=== PATIENT | male | born 1975 | race Caucasian/White ===

== ENCOUNTER → 2018-05-07 09:45 | Outpatient (CLI) | payer OTHER, SELFPAY ==
[2018-05-07 12:34] LABS: Absolute Lymphocyte Count 1.37 X10^3/ul (0.83-4.51); Absolute Neutrophil Count 3.5 X10^3/uL (2.0-7.7); Basophil# 0.01 X10^3/uL; Basophil% 0.2 % (0-1); Eosinophil# 0.32 X10^3/uL; Eosinophils% 5.7 % (0-5); Hematocrit 45.7 % (40-54); Hemoglobin 14.8 g/dl (13.0-16.5); Lymphocyte # 1.37 X10^3/ul (4.0); Lymphocyte % 24.2 % (19-41); Mean Corp Hgb Conc 32.4 g/gl (32-36); Mean Corpuscular Hgb 28.1 pg (27.0-32.0); Mean Corpuscular Volume 86.7 fL (80-94); Mean Platelet Vol. 11.2 fl (6.2-12.0); Monocyte# 0.41 X10^3/uL; Monocyte% 7.2 % (0-10); Neutrophil # 3.54 X10^3/uL (2.7-7.7); Neutrophil % 62.5 % (47-70); POSITIVE COUNT NO; POSITIVE DIFFERENTIAL NO; POSITIVE MORPHOLOGY NO; Platelet Count 318 K/mm3 (150-450); RBC Distribution Width CV 13.2 % (11.6-14.6); RBC Distribution Width SD 41.7 fl (35.1-43.9); Red Blood Count 5.27 M/mm3 (4.6-6.2); White Blood Count 5.7 K/mm3 (4.4-11.0)
[2018-05-07 12:48] LABS: AST(SGOT) 14 U/L (15-37); Alanine Aminotransfer ALT/SGPT 30 U/L (16-61); Albumin, Serum 4.3 g/dL (3.2-5.0); Alkaline Phosphatase 53 U/L (45-117); Anion Gap 9 (5-15); BUN 15 mg/dL (7-18); BUN/Creat Ratio 14.9 RATIO (10-20); Bilirubin, Direct 0.09 mg/dL (0.00-0.30); Calcium,Total 9.1 mg/dL (8.5-10.1); Chloride 106 mmol/L (98-107); Creatinine, Serum 1.01 mg/dL (0.70-1.30); EST Glomerular Filtration Rate 85 mL/min (>60); Est Glom Filt Rate - Afr Amer 103 mL/min (>60); Globulin 4.2 g/dL (2.2-4.2); Glucose 83 mg/dL (74-106); Potassium 3.7 mmol/L (3.5-5.1); Protein, Total 8.5 g/dL (6.4-8.2); Sodium Level 140 mmol/L (136-145)
[2018-05-10 03:07] LABS: QNTFERON TB Mitogen Value > 10.00 IU/mL (.); QNTFERON TB Nil Value 0.03 IU/mL (.); QNTFERON TB1+ Ag Value 0.03 IU/mL (.); QNTFERON TB2+ Ag Value 0.03 IU/mL (.)
[2018-05-10 09:33] LABS: QNTIFERON TB Positive Criteria Negative (Negative)
== END ==
PROVIDERS: Referring Provider Dermatology Pediatric Dermatology; Visit Provider Dermatology Pediatric Dermatology
DX: L40.0 Psoriasis vulgaris (principal)
CPT/HCPCS: 36415; 80048; 80076; 85025; 86480

== ENCOUNTER 2021-03-01 00:02 | Observation (INO) | payer BC, SELFPAY ==
[2021-03-01] VITALS (16 sets, daily range): BP systolic 134–172; BP diastolic 79–123; PULSE 71–102; RESP 16–18; TEMP 35.5–37.1; O2SAT 93–99; BMI 33.3; BMI 34.0
--- NOTE | 2021-03-01 00:40 | ED.VIS.GI ---
HPI HPI - GI History of Present Illness Chief Complaint: Abd Pain Informant: patient Narrative Narrative: Patient is a 45-year-old male presenting with worsening pain in his right lower quadrant. Patient states it started around 10 PM he describes as sharp in nature. He notes he has some diffuse discomfort in his abdomen but it is worse in the right lower quadrant now. It does not radiate. States he felt fine over the weekend. He notes for the past few weeks ever since he had Covid he has had nausea vomiting and diarrhea however this is finally resolved. Has had a prior vasectomy but no abdominal surgeries. States he is told his blood pressure is high sometimes but he does not take any medication for it. Denies any urinary symptoms. Denies any fever or chills. Did not take any for pain prior to arrival. PFSH PFSH Medical History no medical history Home Medications fexofenadine [Kathleen] 60 mg PO DAILY 03/01/21 [History Last Taken Unknown] Allergy/AdvReac Type Severity Reaction Status Date / Time No Known Allergies Allergy Verified 03/01/21 00:05 Social History Smoking Status: Never smoker ROS ROS ED Constitutional Constitutional ED: Denies chills or fever(s) ENT ENT ED: Denies sore throat Cardiovascular Cardiovascular: Denies chest pain Respiratory/Chest Respiratory/Chest: Denies cough or dyspnea Gastrointestinal Gastrointestinal: Reports abdominal pain; Denies diarrhea, nausea or vomiting Genitourinary Genitourinary ED: Denies dysuria, hematuria or urinary frequency Musculoskeletal Musculoskeletal: Denies arthralgias, back pain or myalgias Integumentary Denies rash Neurologic Neurologic: Denies headache(s) or weakness Psychiatric Psychiatric: Denies anxiety or depression EXAM Physical Exam Const Vital Signs: 03/01/21 00:03 03/01/21 00:05 Temperature 96.8 F L 96.8 F L Temperature Source Temporal Temporal Pulse Rate 98 98 Respiratory Rate 16 16 Blood Pressure 172/123 H 172/123 H Blood Pressure Mean 139 139 Pulse Ox 99 99 Oxygen Delivery Method Room Air Room Air Positive well nourished and well developed General Appearance ED: well developed HEENT normocephalic Eyes PERRL Neck supple Resp normal respiratory effort and clear to auscultation bilaterally Cardio regular rate, regular rhythm and no murmurs GI non-distended Auscultation: normoactive bowel sounds Palpation: soft and tender RLQ and McBurney's point; Negative for guarding, rigid or rebound tenderness present Back/Spine no CVA tenderness Extremity full ROM General Extremety ED: Negative for edema or tenderness General Extremity: Negative for edema Neuro no sensory deficits noted Sensorium / Orientation: alert Motor Exam: strength 5/5 throughout; Negative for general weakness Psych mental status grossly normal and thought process normal Skin Lesions: no lesions Rashes: no rashes MDM MDM MDM Narrative Medical decision making narrative: Patient is evaluated for right lower quadrant abdominal pain. He has pain at McBurney's point. He is otherwise well-appearing. No peritoneal signs. He has a leukocytosis of 14.5. Vital signs are significant for mild hypertension. He states he has been told his blood pressure is high in the past is not on any medications. No other significant laboratory abnormalities. CT of abdomen pelvis shows acute appendicitis. No signs of perforation or abscess. Patient is admitted to surgical service, Dr. Swann, for definitive management. Patient is given Toradol in the ER for pain control. He started on IV Zosyn. Lab Data Attestation: I reviewed the patient's lab results. Labs: Laboratory Results - last 24 hr 03/01/21 03/01/21 03/01/21 00:20 00:20 00:25 WBC 14.5 H RBC 4.61 Hgb 13.1 Hct 39.9 L MCV 86.6 MCH 28.4 MCHC 32.8 RDW Std Deviation 39.8 RDW Coeff of Louise 12.7 Plt Count 313 MPV 10.9 Immature Gran % (Auto) 0.400 Neut % (Auto) 71.2 H Lymph % (Auto) 17.3 L [place] % (Auto) 8.5 Eos % (Auto) 2.3 Baso % (Auto) 0.3 Absolute Neuts (auto) 10.3 H Absolute Lymphs (auto) 2.52 Nucleated RBC % 0 Sodium 140 Potassium 4.4 Chloride 106 Carbon Dioxide 29.0 Anion Gap 5 BUN 10 Creatinine 0.94 Estim Creat Clear Calc 84.51 Est GFR (MDRD) Af Amer 110 Est GFR (MDRD) Non-Af 91 BUN/Creatinine Ratio 10.6 Glucose 114 H Calcium 9.0 Total Bilirubin 0.30 AST 43 H ALT 54 Alkaline Phosphatase 62 Total Protein 7.2 Albumin 3.3 Globulin 3.9 Albumin/Globulin Ratio 0.8 L Lipase 170 Urine Color Yellow Urine Clarity Clear Urine pH 6.0 Ur Specific [place] 1.020 Urine Protein Negative Urine Glucose (UA) Normal Urine Ketones Negative Urine Occult Blood 25 H Urine Nitrite Negative Urine Bilirubin Negative Urine Urobilinogen Normal Ur Leukocyte Esterase Negative Urine RBC 0-5 SEEN Urine WBC 0 SEEN Ur Squamous Epith Cells 0 SEEN Urine Bacteria 0 SEEN Urine Mucus 0 SEEN Radiography Diagnostic Testing: Clinical Impression(s) from Imaging Studies Abdomen/Pelvis CT 03/01/21 00:41 IMPRESSION: Acute appendicitis. Electronically Signed: Mikhail Bennett MD at 1:19 EST Tel , Service support , Discharge Plan Triage Chief Complaint: Abd Pain ED Provider: Jing Britt Dx/Rx/DC Orders Clinical Impression: Acute appendicitis Prescriptions: No Action Kathleen 30 mg Tablet 60 mg PO DAILY RF: 0 Primary Care Provider: Johnny Zhao NP Referrals: Johnny Zhao NP, GASOLINE TRUCK CRANE OPERATOR-C [Primary Care Provider] - Disposition Disposition: Acute Care [facility]
--- NOTE | 2021-03-01 00:41 | CT_ITS ---
STUDY: CT ABDOMEN AND PELVIS WITH CONTRAST REASON FOR EXAM: Male, 45 years old. RLQ abd pain RADIATION DOSAGE (If Supplied By Facility): CTDIvol = ( 17.92 ) mGy, DLP = ( 1236.79 ) mGycm TECHNIQUE: Transaxial images were obtained from the dome of the diaphragm to the symphysis pubis without oral contrast. IV 100mL Isovue-300 was administered. Sagittal and coronal images were reconstructed. Individualized dose optimization techniques were used for this CT. COMPARISON: None. FINDINGS: The visualized lung bases are unremarkable. The visualized portions of the heart are within normal limits. Multiple liver cysts are noted the largest measuring 3.1 cm. Normal gallbladder and extrahepatic biliary system. Normal spleen. Normal pancreas. Normal bilateral adrenal glands. Multiple bilateral renal cysts, the largest measures 4.5 cm. Normal visualized stomach. Normal small intestine. Normal colon. There is a tubular, thick-walled appendix (>7mm), consistent with acute appendicitis. Normal abdominal aorta. Normal inferior vena cava. Normal retroperitoneum. Normal urinary bladder. Normal abdominal wall. Normal osseous structures. CT/Abdomen/Pelvis W IV Cont ONLY IMPRESSION: Acute appendicitis. Electronically Signed: Mikhail Bennett MD at 1:19 EST Tel , Service support ,
[2021-03-01 00:45] LABS: Absolute Lymphocyte Count 2.52 X10^3/uL (0.83-4.51); Absolute Neutrophil Count 10.3 X10^3/uL (2.0-7.7); Basophil# 0.04 X10^3/uL; Basophil% 0.3 % (0-1); Eosinophil# 0.33 X10^3/uL; Eosinophils% 2.3 % (0-5); Hematocrit 39.9 % (40-54); Hemoglobin 13.1 g/dL (13.0-16.5); Lymphocyte # 2.52 X10^3/ul (0.83-4.51); Lymphocyte % 17.3 % (19-41); Mean Corp Hgb Conc 32.8 g/dL (32-36); Mean Corpuscular Hgb 28.4 pg (27.0-32.0); Mean Corpuscular Volume 86.6 fL (80-94); Mean Platelet Vol. 10.9 fl (6.2-12.0); Monocyte# 1.24 X10^3/uL; Monocyte% 8.5 % (0-10); NRBC Flagged by Analyzer 0 % (0-5); Neutrophil # 10.34 X10^3/uL (2.7-7.7); Neutrophil % 71.2 % (47-70); Platelet Count 313 K/mm3 (150-450); RBC Distribution Width CV 12.7 % (11.6-14.6); RBC Distribution Width SD 39.8 fl (35.1-43.9); Red Blood Count 4.61 M/mm3 (4.6-6.2); White Blood Count 14.5 K/mm3 (4.4-11.0)
[2021-03-01 00:49] LABS: Bacteria 0 SEEN /hpf (None Seen); Mucous, Urine 0 SEEN /hpf (<or=2+); Squamous Epithelial Cells - UA 0 SEEN /hpf (0-5); White Blood Cells 0 SEEN /hpf (0-5)
[2021-03-01] MEDS: 0.9% Normal Saline 1,000 ML 1000 ML IV (00:49)
[2021-03-01 00:50] LABS: Color, Urine Yellow (Yellow); Glucose, Dipstick Normal (Normal); Ketone-Dipstick Negative (Negative); Leukocyte Esterase-Dipstick Negative /ul (Negative); Nitrite-Dipstick Negative (Negative); Occult Blood-Urine 25 /ul (Negative); Protein-Dipstick Negative (Negative); Urine Bilirubin Dipstick Negative (Negative); Urine Clarity Clear (Clear); Urine Urobilinogen Normal (Normal)
[2021-03-01 00:56] LABS: Red Blood Cells-Urine 0-5 SEEN /hpf (0-5)
[2021-03-01 01:01] LABS: ALB/GLOB Ratio 0.8 RATIO (0.9-2.4); AST(SGOT) 43 U/L (15-37); Alanine Aminotransfer ALT/SGPT 54 U/L (16-61); Albumin, Serum 3.3 g/dL (3.2-5.0); Alkaline Phosphatase 62 U/L (45-117); Anion Gap 5 (5-15); BUN 10 mg/dL (7-18); BUN/Creat Ratio 10.6 RATIO (10-20); Chloride 106 mmol/L (98-107); Creatinine, Serum 0.94 mg/dL (0.70-1.30); EST Glomerular Filtration Rate 91 mL/min (>60); Est Glom Filt Rate - Afr Amer 110 mL/min (>60); Estimated Creatinine Clearance 84.51 ml/min; Globulin 3.9 g/dL (2.2-4.2); Glucose 114 mg/dL (74-106); Lipase 170 U/L (73-393); Potassium 4.4 mmol/L (3.5-5.1); Protein, Total 7.2 g/dL (6.4-8.2); Sodium Level 140 mmol/L (136-145)
[2021-03-01] MEDS: Ketorolac 30 MG/ML Syringe 15 MG IV (01:01)
[2021-03-01] MEDS: 0.9% Normal Saline 1,000 ML 120 ML IV ×2 (03:10→12:52)
[2021-03-01] MEDS: Morphine 4 MG/ML Syringe IV (05:18)
--- NOTE | 2021-03-01 07:23 | PCM.HP.STD ---
HPI - General General Date of Admission: 03/01/21 HPI Narrative LOUIS MANCINI, is a 45 M who presents with abdominal pain beginning last night. The abdominal pain was initially generalized and then localized to the RLQ. Worsening pain developed. Described as sharp. Has some nausea but denies emesis. Denies fevers. He presented to [facility] ED - afebrile, elevated WBC of 14.5K with left shift of differential and CT scan findings of appendicitis. [facility] Medical History Hypertension Seasonal allergies Medical History no medical history Home Medications fexofenadine [Kathleen] 60 mg PO DAILY 03/01/21 [History Last Taken Unknown] Allergy/AdvReac Type Severity Reaction Status Date / Time No Known Allergies Allergy Verified 03/01/21 00:05 Surgical History History of vasectomy Social History Smoking Status: Never smoker ROS Constitutional Constitutional: Denies fever(s) or weight loss Cardiovascular Cardiovascular: Denies chest pain Respiratory/Chest Respiratory/Chest: Denies productive cough Gastrointestinal Gastrointestinal: Denies hematochezia Genitourinary Genitourinary: Denies dysuria or hematuria Musculoskeletal Musculoskeletal: Reports back pain and joint pain Integumentary Integumentary: Denies jaundice Neurologic Neurologic: Denies abnormal gait or dizziness Hematologic/Lymphatic Hematologic/Lymphatic: Denies easy bleeding Vital Signs Vital Signs Vital Signs: 03/01/21 00:03 03/01/21 00:05 03/01/21 02:12 Temperature 96.8 F L 96.8 F L 98.3 F Temperature Source Temporal Temporal Oral Pulse Rate 98 98 92 Respiratory Rate 16 16 17 Blood Pressure 172/123 H 172/123 H 141/93 H Blood Pressure Mean 139 139 109 Blood Pressure Source Blood Pressure Position Blood Pressure Location Pulse Ox 99 99 97 Oxygen Delivery Method Room Air Room Air Room Air 03/01/21 02:40 Temperature 98.8 F Temperature Source Oral Pulse Rate 86 Respiratory Rate 18 Blood Pressure 166/91 H Blood Pressure Mean 116 Blood Pressure Source Monitor Blood Pressure Position Semi-Fowlers Blood Pressure Location Left Arm Pulse Ox 99 Oxygen Delivery Method Room Air Weight Weight: 92.8 kg Body Mass Index (BMI) 34.0 Physical Exam Const oriented x3 and no apparent distress Resp normal respiratory effort Cardio regular rate GI GI Narrative: abdomen is obese and soft with guarding in right lower quadrant and percussion tenderness Extremity no clubbing, cyanosis or edema Results Lab / Micro Data Result Diagrams: 03/01/21 00:20 03/01/21 00:20 Labs: Laboratory Results - last 24 hr 03/01/21 00:20: WBC 14.5 H, RBC 4.61, Hgb 13.1, Hct 39.9 L, MCV 86.6, MCH 28.4, MCHC 32.8, RDW Std Deviation 39.8, RDW Coeff of Louise 12.7, Plt Count 313, MPV 10.9, Immature Gran % (Auto) 0.400, Neut % (Auto) 71.2 H, Lymph % (Auto) 17.3 L, [place] % (Auto) 8.5, Eos % (Auto) 2.3, Baso % (Auto) 0.3, Absolute Neuts (auto) 10.3 H, Absolute Lymphs (auto) 2.52, Nucleated RBC % 0 03/01/21 00:20: Sodium 140, Potassium 4.4, Chloride 106, Carbon Dioxide 29.0, Anion Gap 5, BUN 10, Creatinine 0.94, Estim Creat Clear Calc 84.51, Est GFR (MDRD) Af Amer 110, Est GFR (MDRD) Non-Af 91, BUN/Creatinine Ratio 10.6, Glucose 114 H, Calcium 9.0, Total Bilirubin 0.30, AST 43 H, ALT 54, Alkaline Phosphatase 62, Total Protein 7.2, Albumin 3.3, Globulin 3.9, Albumin/Globulin Ratio 0.8 L, Lipase 170 03/01/21 00:25: Urine Color Yellow, Urine Clarity Clear, Urine pH 6.0, Ur Specific [place] 1.020, Urine Protein Negative, Urine Glucose (UA) Normal, Urine Ketones Negative, Urine Occult Blood 25 H, Urine Nitrite Negative, Urine Bilirubin Negative, Urine Urobilinogen Normal, Ur Leukocyte Esterase Negative, Urine RBC 0-5 SEEN, Urine WBC 0 SEEN, Ur Squamous Epith Cells 0 SEEN, Urine Bacteria 0 SEEN, Urine Mucus 0 SEEN Micro: Microbiology 03/01/21 02:10 Interface Orders SARS-CoV-2 Antigen (Rapid) - Final Radiology Impression Abdomen/Pelvis CT 03/01/21 00:41 IMPRESSION: Acute appendicitis. Electronically Signed: Mikhail Bennett MD at 1:19 EST Tel , Service support , ADDENDUM: 03/01/21 0621 Assessment & Plan Assessment/Plan (1) Acute appendicitis: QUALIFIERS: Acute appendicitis type: unspecified acute appendicitis type Qualified Code(s): K35.80 - Unspecified acute appendicitis PLAN: I have discussed the above with the patient. I have offered the patient the procedure of laparoscopic appendectomy. I have explained the procedure to the patient. I have counseled the patient as to the risks of the procedure, including but not limited to: infection, bleeding, injury to any blood vessels/nerves, scar tissue, injury to any intraabdominal organs, injury to kidney/ureters, injury to bowel/bladder, intraabdominal abscess/bleeding, hernias at incisional sites, wound infections, possible open procedure, complications of anesthesia, postoperative pneumonia/cardiac problems/blood clots etc. the patient understands. He wishes to proceed. I have answered all questions to the patient?s satisfaction and the patient has no further questions.
--- NOTE | 2021-03-01 07:57 | EKG12_ITS ---
Test Reason : PRE OP Blood Pressure : / mmHG Vent. Rate : 083 BPM Atrial Rate : 083 BPM P-R Int : 138 ms QRS Dur : 080 ms QT Int : 390 ms P-R-T Axes : 041 024 013 degrees QTc Int : 458 ms Normal sinus rhythm Normal ECG Confirmed by RICH LEZAMA, IVANIA ([id number]), material expeditor ROBYN ISRAEL ([id number]) on 03/02/2021 9:29:15 AM Referred By: DELMY Confirmed By:IVANIA VILLANUEVA MD
--- NOTE | 2021-03-01 11:15 | APP_PTH ---
PATIENT: LOUIS MANCINI LOC: [facility] U#:[id number] AGE/SX: 45/M ROOM: [facility] RE03/01/[address]: Dr. Latisha Swann MD : 1975 BED: 1 DIS: 03/01/2021 SPEC #: [id number] RECD: 03/01/21 13:49 STATUS: ELSIE REEdil #: [id number] GAYLE: 03/01/21 11:[address]: Latisha Swann DEPT: SURGICAL PATHOLOGY RECD BY: Ana Salas ENTERED: 03/02/21 08:58 SP TYPE: APPENDIX OTHR DR: Johnny Zhao, SIERRA-Kevin Tissues: Appendix, NOS Procedures: Surgery Specimen Level III HEADER OPERATION: Laparoscopic appendectomy PRE-OP DIAGNOSIS: Acute appendicitis TISSUE SUBMITTED: Appendix MICROSCOPIC DIAGNOSIS Appendix, appendectomy: Acute appendicitis and periappendicitis. JENSEN:sofia 03/03/2021 MICROSCOPIC DESCRIPTION Slides are reviewed. GROSS DESCRIPTION Received in fixative is one container labeled with the patient's name and designated appendix. The specimen consists of an appendix in two pieces measuring 6 cm in length and up to 0.5 cm in diameter. An area of disruption may represent the site of rupture. The lumen contains hemorrhagic material. No fecalith is identified. Assisted Living Coordinator sections are submitted in two cassettes. / SJ:rg 03/02/21 TC:2 CPT: 54494
[2021-03-01] MEDS: Bupivacaine 0.25% 30 ML Vial (12:13)
--- NOTE | 2021-03-01 12:25 | PCM.OPRPT ---
Report of Operation Date of Procedure: 03/01/21 Pre-Operative Diagnosis: acute appendicitis Post-Operative Diagnosis: same Surgery/Procedure Performed:: laparoscopic appendectomy Description of Surgical Findings:: retrocecal appendix extending superiorly along the para colic gutter Surgeon: Latisha Swann Type of Anesthesia: General Anesthesiologist: Garth Yousif Specimen's removed: appendix Drains: none Estimated Blood Loss (mL): < 20 ml Fluids Replaced: 700 ml RL Description of Procedure: After informed consent was obtained, the patient was brought into the Operating Room. Appropriate time out protocol was followed. The patient was placed in the supine position on the operating table. The patient was then placed under general anesthesia by the anesthesia provider. The patient?s abdomen was then prepped with a sterile surgical skin preparation and sterile surgical drapes were placed. The infraumbilical skin fold was grasped with penetrating towel clamps and the skin and subcutaneous tissues were infiltrated with local anesthetic with epinephrine. An incision was then made with a 15 blade scalpel. A Veress needle was then inserted into the intraabdominal cavity and checked to be in the proper position with a normal saline drop test. A CO2 pneumoperitoneum was then created. Once this was achieved, the Veress needle was removed and a 5 mm trocar was placed in its stead. A 5 mm laparoscope was then inserted into the trocar. Careful examination of the intraabdominal contents was then done. There was no evidence of injury to any internal organs from placement of the Veress needle or the trocar. Under direct visualization, a 12mm suprapubic trocar and a 5mm left lower quadrant trocar was then placed into the intraabdominal cavity. The skin and subcutaneous tissues at these sites were first infiltrated with local anesthetic with epinephrine. Attention was then directed to the right lower quadrant. The appendix was visualized. It was retrocecal and extending up the right paracolic gutter, cephalad. The appendix appeared enlarged/edematous/injected with surrounding fatty tissue inflammation. The mesentery of the appendix was taken down by cauterizing the tissue from the free edge to the base of the appendix using the Harmonic scalpel. Once the base of the appendix was freed of surrounding tissues, then the linear gastrointestinal stapling device was brought into the abdominal cavity via the 12mm port and placed across the base of the appendix. The stapling device was fired, thus stapling across the base of the appendix and transecting it simultaneously. There was no evidence of perforation of the appendix. The pelvic cavity was vigorously irrigated with normal saline and all irrigant was aspirated out. The appendix was placed in an Endobag and this was brought out through the suprapubic trocar. The appendix was forwarded to Pathology for analysis. The appendiceal stump was carefully examined. There was no evidence of any active bleeding or fecal leakage. The surrounding tissues were also examined and there was no evidence of any active bleeding or fecal/bile leakage. The intraabdominal cavity was examined and there was no evidence of any further inflammation or tissue abnormality. The CO2 pneumoperitoneum was released and all trocars were removed intact. The suprapubic fascia was reapproximated with a figure-of-8 vicryl suture. All skin incisions were reapproximated with monocryl suture. Cavilon and steristrips were applied to reinforce skin closure and proper sterile dressings were placed. Sponge, needle, and instrument count were verified and correct at the time of skin closure. The patient was then extubated and brought to the Recovery Room in stable condition. Complications none noted Admit VTE Documentation VTE Present on Admission: Yes VTE Mechan Device Prophylaxis: SCD's
--- NOTE | 2021-03-01 16:25 | DCINST_ITS ---
Discharge Instructions Follow Up Care Test Results: Test results from this visit will be discussed in further detail at your follow-up appointment, if applicable. Discharge Plan Admission Admit Date/Time: 03/01/21 01:40 Attending Provider: Latisha Swann Primary Care Provider: Johnny Zhao NP Instructions Additional Instructions / Restrictions: Recommended pain control regimen - May take 600 mg ibuprofen (Motrin) and then in 3-4 hours, may take 650 mg acetaminophen (Tylenol), then in 3-4 hours may take 600 mg ibuprofen, then in 3- 4 hours may take 650 mg acetaminophen and so on for 2-3 days May take narcotic pain medication for pain that is not controlled by above and at night for comfort through the night Leave dressings in place May shower, do not scrub in the areas of the dressings as they may unravel. If they become overly soiled you may remove them but leave incision site open to air. Do not soak - no tub baths/swimming No lifting/pushing/pulling greater than 20 pounds for two weeks. Regular diet as tolerated, drink plenty of fluids. Avoid carbonated beverages for a few days as this will cause abdominal bloating and thus discomfort after our surgery. Please call my office for an appointment to see me in 1-2 weeks. Office number is If any questions, please call my office at and ask the keel press operator for the general surgery nurses desk Discharge Orders/Prescriptions Prescriptions: New hydrocodone-acetaminophen 5-325 mg tablet 1 tab PO Q8H 5 Days Qty: 15 RF: 0 No Action Kathleen 30 mg Tablet 60 mg PO DAILY RF: 0 Referrals / Follow Up: Johnny Zhao PAPER PRODUCTION ENGINEER, PAPER PRODUCTION ENGINEER-C [Primary Care Provider] - Disposition Discharge Orders: Discharge Patient (Routine); Ordered 03/01/21 Ordered By: Dr. Latisha Swann
== END 2021-03-01 18:18 | disposition home or self-care (01) ==
LOC: ED 01:38 → PCU 01:52
PROVIDERS: Admitting Provider Surgery; Emergency Provider Emergency Medicine; PCP Nurse Practitioner Family; Visit Provider Surgery
PROC: 0DTJ4ZZ Resection of Appendix, Percutaneous Endoscopic Approach (ICD-10-PCS; CPT 44970; principal; 2021-03-01 10:55)
DX: K35.80 Unspecified acute appendicitis (principal); I10 Essential (primary) hypertension
CPT/HCPCS: 00840; 44970; 74177; 80053; 81001; 83690; 85025; 87426; 88304; 93005; 96365; 96366; 96375; 99218; 99285; J7030; J7050; J7120; Q9967; A4216; G0378; J2405

== ENCOUNTER 2021-04-03 17:07 | Emergency (ER) | payer BC, SELFPAY ==
[2021-04-03 17:08] VITALS: BP 161/113; PULSE 101; RESP 18; TEMP 36.3; O2SAT 97; BMI 34.8
--- NOTE | 2021-04-03 18:27 | EDS_ITS ---
HPI History of Present Illness Chief Complaint: Lower Extremity Injury Detail of Chief Complaint: Right leg pain that started 4 days ago Informant: patient Narrative Narrative: Patient presents to the emergency department complaint of pain in his right leg that started initially 4 days ago. Patient states initially pain was more in his right knee but then the following day seem to migrate to the proximal posterior thigh. The pain is been there now continuously and is worse with pressure on that area or walking. He denies any chest pain or shortness of breath. He denies any trauma. Patient does do a lot of lifting and twisting at work. Patient also had an appendectomy last month. No history of PE or DVT. He has had no fever or recent illness. [facility] Medical History Hypertension Seasonal allergies Medical History no medical history Home Medications hydrocodone-acetaminophen 1 tab PO Q4H PRN PRN 2 Days #10 tablet 04/03/21 [Rx Last Taken Unknown] naproxen 500 mg PO BID #14 tab 04/03/21 [Rx Last Taken Unknown] Allergy/AdvReac Type Severity Reaction Status Date / Time No Known Allergies Allergy Verified 04/03/21 17:07 Surgical History History of vasectomy Social History Smoking Status: Never smoker ROS ROS ED Constitutional Constitutional ED: Reports systems reviewed and no addt'l complaints, except as documented; Denies body ache(s), change in weight or chills Eyes Eyes: Denies acute decrease in peripheral vision, change in vision, double vision or loss of vision ENT ENT ED: Reports none; Denies ear pain, lip swelling, loss taste/smell, neck pain, otalgia or sore throat Cardiovascular Cardiovascular: Reports none; Denies abdominal pain, chest pain with activity, leg edema, lightheadedness, palpitations, rapid heart rate or syncope Respiratory/Chest Respiratory/Chest: Reports none; Denies change in mental status, dry cough, dyspnea, hemoptysis, shortness of breath at rest or shortness of breath with exertion Gastrointestinal Gastrointestinal: Reports none; Denies abdominal pain, change in stool character, diarrhea, hematemesis, hematochezia, melena, rectal bleeding or vomiting Genitourinary Genitourinary ED: Reports none; Denies abdominal discomfort, anuria, dysuria, genital pain or polyuria Musculoskeletal Musculoskeletal: Reports none and other Details: Right leg pain ; Denies arthralgias, back pain, difficulty walking, extremity pain, muscle weakness or myalgias Integumentary Reports none; Denies abscess or rash Neurologic Neurologic: Reports none; Denies abnormal gait, confusion, focal weakness, frequent falls, headache(s), loss of vision, numbness, paresthesias, radicular pain, vertigo or weakness Psychiatric Psychiatric: Reports systems reviewed and no addt'l complaints, except as documented and none; Denies behavioral changes, confusion, difficulty concentrating, hallucinations, suicidal ideation, tactile hallucinations or visual hallucinations Endocrine Endocrinology: Denies none, cold intolerance, excessive sweating, fatigue or heat intolerance Hematologic/Lymphatic Hematologic/Lymphatic: Reports none; Denies anemia, easy bleeding or easy bruising Allergic/Immunologic Allergic/Immunologic ED: Denies as per HPI, none, lip swelling, mouth swelling, throat swelling, tongue swelling or hives EXAM Physical Exam Const Vital Signs: 04/03/21 17:08 Temperature 97.3 F L Temperature Source Temporal Pulse Rate 101 H Respiratory Rate 18 Blood Pressure 161/113 H Blood Pressure Mean 129 Pulse Ox 97 Oxygen Delivery Method Room Air Positive well nourished and well developed General Appearance ED: well developed and NAD HEENT Reports TM's clear and moist mucous membranes normocephalic and atraumatic; Negative for trauma or tenderness Tympanic Membrane ED: Yes TM's clear Eyes PERRL and EOMs intact bilaterally General Eye ED: Negative for pale conjunctiva or scleral icterus Neck no lymphadenopathy, supple and no JVD General: Negative for tenderness Chest Wall inspection of chest normal and palpation of chest normal Chest: Negative for tenderness Resp normal respiratory effort and clear to auscultation bilaterally Effort and Inspection: Negative for respiratory distress or pain with movement Auscultation: Negative for rhonchi, wheezes or diminished lung sounds Cardio regular rate, regular rhythm, S1 normal heart sound, S2 normal heart sound and no murmurs Peripheral Pulses: pulses 2+ throughout GI normal to inspection, nondistended, normoactive bowel sounds, soft to palpation, non-tender, non-distended and no masses Back/Spine no CVA tenderness and no thoracic nor lumbar tenderness Extremity Extremity Narrative: Evaluation of the right leg does reveal tenderness palpation over the right lateral proximal thigh as well as posterior thigh. There is no ecchymosis or bruising and no masses palpated. Good range of motion at the hip. There is no erythema or warmth noted. No cellulitic changes. Evaluation of the knee reveals no tenderness on palpation of the knee and there is no effusion. Ligamentously stable. Patient has no calf pain or swelling noted. General Extremety ED: Negative for edema General Extremity: Negative for edema Neuro oriented x3, CN's II-XII intact bilaterally, no sensory deficits noted and gait normal Sensorium / Orientation: awake, alert, oriented to person, oriented to place and oriented to time Motor Exam: strength 5/5 throughout and strength abnormal Psych mental status grossly normal Skin no rashes or lesions noted and no wounds MDM MDM MDM Narrative Medical decision making narrative: IV line established on arrival. Patient was given 4 mg of morphine and 4 mg of Zofran IV. He did have some pain relief with that. Lab work-up was unremarkable and his D-dimer was normal. At this point etiology of his pain is unclear although I suspect likely soft tissue. I do not suspect he has a DVT. Patient advised to follow-up with his primary care physician within next 3 to 5 days. He is given work restrictions. He is given a prescription for naproxen and [address] for pain. Lab Data Attestation: I reviewed the patient's lab results. Labs: Laboratory Results - last 24 hr 04/03/21 04/03/21 04/03/21 18:33 18:33 18:33 WBC 9.9 RBC 4.76 Hgb 13.5 Hct 41.4 MCV 87.0 MCH 28.4 MCHC 32.6 RDW Std Deviation 41.2 RDW Coeff of Louise 13.1 Plt Count 354 MPV 10.5 Immature Gran % (Auto) 0.100 Neut % (Auto) 67.7 Lymph % (Auto) 21.2 [place] % (Auto) 7.6 Eos % (Auto) 3.1 Baso % (Auto) 0.3 Absolute Neuts (auto) 6.7 Absolute Lymphs (auto) 2.10 Nucleated RBC % 0 D-Dimer Quant (PE/DVT) <= 0.27 Total Creatine Kinase 79 Radiography Diagnostic Testing: Clinical Impression(s) from Imaging Studies Femur X-Ray 04/03/21 18:50 IMPRESSION: Normal x-ray examination of the femur. Electronically Signed: Mateo Gama MD at 19:54 EST Tel , Service support , Discharge Plan Triage Chief Complaint: Lower Extremity Injury ED Provider: Jared Keenan Dx/Rx/DC Orders Clinical Impression: Acute pain of right lower extremity Instructions: ED Muscle Strain, Extremity Prescriptions: New hydrocodone-acetaminophen [hydrocodone-acetaminophen] 1 TABLET tablet 1 tab PO Q4H PRN PRN (Reason: Pain) 2 Days Qty: 10 RF: 0 naproxen 500 MG tablet 500 mg PO BID Qty: 14 RF: 0 Primary Care Provider: Johnny Zhao NP Referrals: Johnny Zhao NP, APPLICATIONS SUPPORT ENGINEER-C [Primary Care Provider] - 3-5 Days
[2021-04-03 18:43] LABS: Absolute Neutrophil Count 6.7 X10^3/uL (2.0-7.7); Basophil# 0.03 X10^3/uL; Basophil% 0.3 % (0-1); Eosinophil# 0.31 X10^3/uL; Eosinophils% 3.1 % (0-5); Hematocrit 41.4 % (40-54); Hemoglobin 13.5 g/dL (13.0-16.5); Lymphocyte % 21.2 % (19-41); Mean Corp Hgb Conc 32.6 g/dL (32-36); Mean Corpuscular Hgb 28.4 pg (27.0-32.0); Mean Platelet Vol. 10.5 fl (6.2-12.0); Monocyte# 0.75 X10^3/uL; Monocyte% 7.6 % (0-10); NRBC Flagged by Analyzer 0 % (0-5); Neutrophil # 6.72 X10^3/uL (2.7-7.7); Neutrophil % 67.7 % (47-70); Platelet Count 354 K/mm3 (150-450); RBC Distribution Width CV 13.1 % (11.6-14.6); RBC Distribution Width SD 41.2 fl (35.1-43.9); Red Blood Count 4.76 M/mm3 (4.6-6.2); White Blood Count 9.9 K/mm3 (4.4-11.0)
[2021-04-03] MEDS: Ondansetron 4 MG/2 ML Vial IV (18:47)
[2021-04-03] MEDS: Morphine 4 MG/ML Syringe IV (18:47)
--- NOTE | 2021-04-03 18:50 | RAD_ITS ---
STUDY: X-RAY - RIGHT FEMUR REASON FOR STUDY: Male, 45 years old. pain TECHNIQUE: 2 view(s) of the femur. COMPARISON: None. FINDINGS: Normal visualized femur. Normal visualized soft tissue structure. RAD/Femur Min 2 Views IMPRESSION: Normal x-ray examination of the femur. Electronically Signed: Mateo Gama MD at 19:54 EST Tel , Service support ,
[2021-04-03 19:00] LABS: CPK Total, Creatine Kinase 79 U/L (39-308)
[2021-04-03 19:06] LABS: D-Dimer Quantitative (DVT/PE) <= 0.27 FEU/ug/m (0.27-0.49)
== END 2021-04-03 20:12 | disposition home or self-care (01) ==
PROVIDERS: Emergency Provider Emergency Medicine; PCP Nurse Practitioner Family
DX: M79.604 Pain in right leg (principal); I10 Essential (primary) hypertension; Z79.899 Other long term (current) drug therapy
CPT/HCPCS: 73552; 82550; 85025; 85379; 96374; 96375; 99283; A4216; J2405

== ENCOUNTER 2023-08-25 23:06 | Emergency (ER) | payer BC, SELFPAY ==
[2023-08-25 23:07] VITALS: BP 108/52; PULSE 65; RESP 15; TEMP 36.1; O2SAT 98
--- NOTE | 2023-08-25 23:12 | EDS_ITS ---
HPI History of Present Illness Chief Complaint: Laceration [facility] Medical History Hypertension Seasonal allergies Medical History no medical history Home Medications hydrocodone-acetaminophen 5-325mg 5mg-325mg 1 tab PO Q4H PRN PRN Pain 2 days #10 TABLETS 04/03/21 [Rx Last Taken Unknown] naproxen 500 mg tablet 500 mg PO BID #14 tabs 04/03/21 [Rx Last Taken Unknown] cephalexin 500 mg capsule 500 mg PO TID #21 caps 08/26/23 [Rx Last Taken Unknown] Allergy/AdvReac Type Severity Reaction Status Date / Time No Known Allergies Allergy Verified 08/25/23 23:10 Surgical History History of vasectomy Social History Smoking Status: Never smoker EXAM Physical Exam Const Vital Signs: 08/25/23 23:07 Temperature 97.0 F L Temperature Source Temporal Pulse Rate 65 Respiratory Rate 15 Blood Pressure 108/52 L Blood Pressure Mean 70 Pulse Ox 98 Oxygen Delivery Method Room Air MDM MDM MDM Narrative Medical decision making narrative: HISTORY OF PRESENT ILLNESS: 47-year-old male presents with laceration to index finger. He states with he suffered a laceration to left index finger. States this occurred just prior to arrival as he was working on a home-improvement project. Unknown last tetanus. REVIEW OF SYSTEMS: Pertinent positives: Finger laceration Pertinent negatives: Numbness weakness, loss sensation PHYSICAL EXAM: Nursing triage notes reviewed, Vital signs reviewed Constitutional: please see mdm Extremities: No edema Neuro: Intact 5/5 strength with ok sign (median), intact finger abduction (u lnar) intact wrist extension (radial n). Intact sensation in the radial, ulnar, and median nerve distributions. Skin: Curvilinear laceration noted to the distal second digit of the left hand, it involves the nail around the lateral side of the finger ending on the palmar surface of the digit proximately 2 cm in length MEDICAL DECISION MAKING: Chief Complaint: Finger laceration External records reviewed: immunization record reviewed: No documented tetanus immunization Factors affecting care: hypertension MDM Narrative: Patient was hemodynamically stable, afebrile and nontoxic-appearing. Exam with laceration described above Procedure: Laceration repair. The procedure was performed by myself. Indication: Wound repair Risks and benefits: risks, benefits and alternatives were discussed Consent: Consent was obtained. Wound Details: Curvilinear laceration noted to the distal second digit of the left hand, it involves the nail around the lateral side of the finger ending on the palmar surface of the digit proximately 2 cm in length, approximate 1 mm in depth, no foreign bodies, no deeper structures involved. Anesthesia: 1% lidocaine without epinephrine Wound prep: Patient was prepped and draped in the usual sterile fashion. Tetanus: Updated here Irrigation Solution: Saline Wound Preparation: Soaked in Betadine water solution for 15 minutes The wound was explored to its base in a bloodless field. Procedure Description: complex procedure involving repair of the nail Patient tolerated the procedure well with no immediate complications Return precautions discussed. Keflex given for antimicrobial prophylaxis. The patient and/or family, caregivers express understanding. The patient and/or family, caregivers agrees with the plan. Shared decision making: I will have a discussion with the patient and or visitors regarding risk/benefits of further testing or admission. They will be made aware of of the risk/benefits inherent in this decision they will be given the opportunity to voice understanding. Total critical care time today provided was at least 0 minutes. This excludes separately billable procedures. Critical care time (if documented) is secondary to the patient having high probability of clinically significant/life threatening deterioration in the patient's condition which required my urgent intervention. Impression: 1. Finger laceration 2. Tetanus immunization Dispo: discharge home This note was generated with [employer] dictation software. It may contain incorrect words, spelling, and punctuation that were not noted in review of the chart prior to signing. Discharge Plan Triage Chief Complaint: Laceration ED Provider: Colton Siddiqui Dx/Rx/DC Orders Clinical Impression: Finger laceration Instructions: ED Laceration Extremity Prescriptions: New cephalexin 500 mg capsule 500 mg PO TID Qty: 21 0RF No Action hydrocodone-acetaminophen [hydrocodone-acetaminophen] 1 TABLET tablet 1 tab PO Q4H PRN PRN (Reason: Pain) 2 Days Qty: 10 0RF naproxen 500 MG tablet 500 mg PO BID Qty: 14 0RF Primary Care Provider: Johnny Zhao NP Activity Restrictions/Additional Instructions: Thank you for trusting us with your care today! Please take Tylenol (2 pills, 650 mg), ibuprofen (2 pills, 400 mg) every 6 hours as needed for pain and fever control. Please return to the emergency department if your symptoms change or worsen. Please follow with [facility] upper [facility] for further outpatient evaluation and management. [facility] hand upper [facility] is located at [address] [place] [address], third floor, [address] [facility], [facility] Please call [phone] to schedule appointment if needed Disposition Disposition: Home, Self Care
--- NOTE | 2023-08-25 23:21 | RAD_ITS ---
INDICATION: finger laceration EXAMINATION/TECHNIQUE: X-RAY - LEFT HAND XR Fingers Min 2 Views 3 VIEWS COMPARISON: No relevant prior comparison study available FINDINGS: SOFT TISSUES: Soft tissue swelling of the second digit with laceration. 0.1 cm radiopaque foreign body present in this area. No radiopaque foreign body. BONES/JOINTS: No acute fracture or subluxation.. Normal alignment. Preservation of the joint space.. No sclerotic or destructive changes observed. RAD/Finger(s) Min 2 Views IMPRESSION: No fracture or malalignment. Soft tissue injury at the distal aspect of the second digit with tiny radiopaque foreign body present. Electronically Signed: Michael Robins MD at 1:07 EDT ,
[2023-08-25] MEDS: Diphth,Pertuss(Acell),Tet Vac 0.5 ML Vial IM (23:27)
[2023-08-25] MEDS: Cephalexin 250 MG Capsule 500 MG PO (23:28)
[2023-08-25] MEDS: Ibuprofen 200 MG Tablet 400 MG PO (23:28)
[2023-08-26 00:32] VITALS: BP 144/70; PULSE 74; RESP 18; TEMP 36.4; O2SAT 100
[2023-08-26] MEDS: Lidocaine 1% /Epi 1:100 (20ml) 20 ML Vial INFILT (00:37)
== END 2023-08-26 00:49 | disposition home or self-care (01) ==
PROVIDERS: Emergency Provider Emergency Medicine; PCP Nurse Practitioner Family; Visit Provider Emergency Medicine
DX: S61.311A Laceration without foreign body of left index finger with damage to nail, initial encounter (principal); I10 Essential (primary) hypertension; Z23 Encounter for immunization; W26.8XXA Contact with other sharp object(s), not elsewhere classified, initial encounter
CPT/HCPCS: 11750; 11760; 73140; 90471; 90715; 99284